=== PATIENT | female | born 1940 | race Caucasian/White ===

== ENCOUNTER 2021-12-12 09:45 | Inpatient (IN) | payer MEDICARE, OTHER, SELFPAY ==
[2021-12-12] VITALS (33 sets, daily range): BP systolic 129–160; BP diastolic 46–68; PULSE 58–78; RESP 11–21; TEMP 36.4–36.6; O2SAT 93–100; BMI 29.2
--- NOTE | ~2021-12-12 | US_ITS ---
US venous doppler LE RT DATE: 12/12/2021 11:36 INDICATION: Swelling of right lower sternum. Recent surgery. TECHNIQUE: Real-time and color flow imaging and Doppler analysis of the veins of the right lower extr emity COMPARISON: None FINDINGS: The greater saphenous vein is patent. There is spontaneous and phasic flow and normal augme ntation and color flow signal and normal compression of the deep veins of the right lower extremity. IMPRESSION: No evidence of deep venous thrombosis. Reviewed, dictated and finalized at [facility]. Reviewed, dictated and finalized at location [facility].
--- NOTE | ~2021-12-12 | CT_ITS ---
EXAMINATION: CTA chest PE protocol DATE: 12/12/2021 13:59 INDICATION: Syncope. Elevated d-dimer. TECHNIQUE: Computed tomography angiography (CTA) of the chest was performed with 100 mL Omnipaque-350 intravenous contrast timed to evaluate the pulmonary arteries. Coronal maximum intensity projection 3D-reconstructions were created by the technologist. Automated exposure control and iterative reconst ruction technique were employed. Exam dose: 431.16 mGy-cm total exam DLP. COMPARISON: 02/11/2022 AP and lateral chest FINDINGS: There is diagnostic contrast enhancement of the pulmonary arteries. Focal embolism is ident ified in the subsegmental right lower lobe pulmonary artery. Heart size is normal. No pericardial effusion. There is thoracic aortic and great vessel and coronary artery calcification. No thoracic aortic aneurysm or dissection is detected. No hilar or mediastinal mass lesion or lymphadenopathy. Minimal bilateral pleural effusions, minimal bilateral dependent lower lobe and dependent left upper lobe atelectasis is noted. Status post anterior cervical spine surgical fusion. IMPRESSION: Subsegmental right lower lobe pulmonary embolus Minimal bilateral pleural effusions and minimal bilateral lower lobe dependent atelectasis Reviewed, dictated and finalized at [facility]. Reviewed, dictated and finalized at location [facility].
--- NOTE | ~2021-12-12 | US_ITS ---
EXAMINATION: US carotid duplex BI DATE: 12/12/2021 14:15 INDICATION: Syncope. TECHNIQUE: Grayscale, color Doppler, and pulsed Doppler images of the cervical carotid arteries were obtained. The degree of vessel stenosis is placed in one of the following categories: normal, <50%, 5 0-69%, >=70% but less than near-occlusion, near-occlusion, or total occlusion. Note that percent sten osis relative to normal distal artery lumen diameter is indirectly measured from velocity measurement s as described by Dom, et al. Radiology 2003; 229:340-346. COMPARISON: None. FINDINGS: RIGHT: The right common carotid artery (CCA) peak systolic velocity (PSV) is 72 cm/s. The right internal car otid artery (ICA) PSV is 83 cm/s. The right ICA end-diastolic velocity (EDV) is 19 cm/s. The right IC A/CCA PSV ratio is 1.1. Grayscale and color Doppler images yield an estimate of <50% diameter reducti on from plaque in the ICA. There is antegrade flow in the right vertebral artery. LEFT: The left CCA PSV is 89 cm/s. The left ICA PSV is 268 cm/s. The left ICA EDV is 55 cm/s. The left ICA/ CCA PSV ratio is 3.0. Grayscale and color Doppler images yield an estimate of <50% diameter reduction from plaque in the ICA. There is antegrade flow in the left vertebral artery. IMPRESSION: 1. <50% stenosis in the right internal carotid artery. 2. <50% stenosis in the left internal carotid artery. Reviewed, dictated and finalized at location [facility].
--- NOTE | ~2021-12-12 | XR_ITS ---
XR chest 2V DATE: 12/12/2021 10:18 INDICATION: Syncope TECHNIQUE: AP and lateral views COMPARISON: None FINDINGS: Heart size is normal. Thoracic aortic and great vessel calcification. Prominent right cardiophrenic fat pad. No pulmonary infiltrate or consolidation is detected. No pulmonary vascular congestion. Minimal pleur al effusions are suggested. No pneumothorax. Status post anterior cervical spine surgical fusion. Diffuse osteopenia. IMPRESSION: Minimal pleural effusions are suggested No active cardiopulmonary disease Aortic and great vessel calcification Status post anterior cervical spine surgical fusion Osteopenia Reviewed, dictated and finalized at location [facility].
--- NOTE | 2021-12-12 09:53 | ECG_ITS ---
Measurements Intervals [place] Rate: 72 P: GA: 174 QRS: -39 QRSD: 86 T: 4 QT: 391 QTc: 428 Interpretive Statements SINUS RHYTHM BASELINE ARTIFACT LEFT AXIS DEVIATION ANTEROSEPTAL MYOCARDIAL INFARCTION , PROBABLY OLD ABNORMAL ECG NO PREVIOUS ECG AVAILABLE FOR COMPARISON Electronically Signed On 12-12-2021 11:56:28 CDT by Larry Schroeder M.D.
--- NOTE | 2021-12-12 10:23 | ED.SYNCOPE ---
HPI - Syncope General Chief Complaint: Syncope <Jazzmine Pollard PA-C - Last Filed: 12/12/21 14:57> Stated Complaint: ?unresponsive episode <AWILDA Tobin Last Filed: 12/12/21 14:57> Time Seen by Provider: 12/12/21 10:09 <Jazzmine Pollard PA-C - Last Filed: 12/12/21 14:57> Source: patient and EMS <AWILDA Tobin Last Filed: 12/12/21 14:57> Mode of arrival: EMS <AWILDA Tobin Last Filed: 12/12/21 14:57> Limitations: no limitations <Jazzmine Pollard PA-C - Last Filed: 12/12/21 14:57> History of Present Illness HPI narrative: This is an 80-year-old female that presents to the emergency department after syncopal episode today. Reports they were transferring her to the toilet. She started to feel lightheaded and then passed out. Reports the episode was witnessed. She did not fall or sustain any injuries. When she came back to she vomited. She is still feeling mildly lightheaded. Denies any other symptoms currently. Reports she recently had a syncopal episode and sustained a right hip fracture. Does report some edema of her right leg after surgery. She has been having an injection of a blood thinner daily since her surgery. Denies fever, chest pain, shortness of breath, palpitations, or focal numbness or weakness. <AWILDA Tobin Last Filed: 12/12/21 14:57> Related Data Allergies/Adverse Reactions: Allergies Allergy/AdvReac Type Severity Reaction Status Date / Time aspirin Allergy Unknown Verified 12/12/21 10:33 [email or web address] [From Velcade] Allergy Unknown Verified 12/12/21 10:33 lactose Allergy Unknown Verified 12/12/21 10:33 [id number] Reductase Allergy Unknown Verified 12/12/21 10:33 Inhibitor Sulfa (Sulfonamide Allergy Unknown Verified 12/12/21 10:33 Antibiotics) <AWILDA Tobin Last Filed: 12/12/21 14:57> Review of Systems Review of Systems: CONSTITUTIONAL: Denies fever EYES: Denies visual changes CARDIOVASCULAR: Denies chest pain, palpitations RESPIRATORY: Denies dyspnea. GASTROINTESTINAL: Reports vomiting NEUROLOGIC: Denies numbness, or weakness. <Jazzmine Pollard PA-C - Last Filed: 12/12/21 14:57> All systems reviewed & are unremarkable except as noted in HPI and below <Jazzmine Pollard PA-C - Last Filed: 12/12/21 14:57> PMFSH Past Medical History Medical History: Medical History (Updated 12/12/21 @ 14:39 by Jazzmine Pollard PA-C) History of amyloidosis History of hypertension History of hypothyroidism History of paroxysmal supraventricular tachycardia <Jazzmine Pollard PA-C - Last Filed: 12/12/21 14:57> Surgical History Surgical History: Surgical History (Updated 12/12/21 @ 10:26 by Jazzmine Pollard PA-C) History of hysterectomy <Jazzmine Pollard PA-C - Last Filed: 12/12/21 14:57> Social History Social History: Social History (Updated 12/12/21 @ 10:25 by Jazzmine Pollard PA-C) Smoking status: Never smoker Substance use: never <Jazzmine Pollard PA-C - Last Filed: 12/12/21 14:57> Exam Narrative: GENERAL: Well-appearing, well-nourished, and in no acute distress. HEAD: Normocephalic, atraumatic. EYES: PERRLA and EOMI. ENT: Nares clear, no rhinorrhea or epistaxis. Mucous membranes moist. Oropharynx without tonsillar hypertrophy exudate or other lesions. Bilateral TMs pearly scanlon non-bulging NECK: Supple. No adenopathy or masses. CHEST: Clear to auscultation. No respiratory distress. No wheezes rales or rhonchi HEART: Regular rate and rhythm. No murmur heard. Normal peripheral pulses. EXTREMITIES: Normal range of motion, except decreased active ROM in the right hip due to recent surgery. Non-pitting edema to the right leg. Incision of the right hip is clean, dry and intact. No erythema or warmth of the leg. SKIN: Warm, dry, no rash. NEURO: No focal deficits. Alert and oriented x3. Cranial nerves II through XII grossly intact PSYCH: Normal mood and affect <Zhen
[2021-12-12 10:31] LABS: Basophils Percent Auto 0.3 % (0.2-1.2); Eosinophils Absolute Auto 0.1 K/mm3 (0-0.3); Eosinophils Percent Auto 0.8 % (0-4.4); Hematocrit 35.1 % (37.0-47.0); Hemoglobin 11.3 g/dL (12.0-15.0); Immature Granulocyte Absolute 0.04 K/mm3 (0.00-0.031); Immature Granulocyte Percent A 0.4 % (0-0.5); Lymphocytes Absolute Auto 0.91 K/mm3 (0.9-3.2); Lymphocytes Percent Auto 9.9 % (18.3-44.2); Mean Corpuscular HGB Conc 32.2 g/dl (32-36); Mean Corpuscular Hemoglobin 31.3 pg (26-34); Mean Corpuscular Volume 97.2 fl (80-100); Mean Platelet Volume 10.1 fl (7.4-10.4); Monocytes Absolute Auto 0.5 K/mm3 (0.1-0.6); Monocytes Percent Auto 5.1 % (2.6-8.5); Neutrophils Absolute Auto 7.7 K/mm3 (1.3-6.7); Neutrophils Percent Auto 83.5 % (45.5-73.1); Platelet Count Result 315 k/mm3 (150-375); Red Blood Count 3.61 M/mm3 (4.2-5.4); Red Cell Distribution Width 16.5 % (11.5-14.5); White Blood Count 9.2 K/mm3 (4.5-10.0)
[2021-12-12 10:40] LABS: Alanine Aminotransferase 31 U/L (6-35); Albumin Level 3.6 g/dL (3.5-5.1); Alkaline Phosphatase 156 U/L (38-126); Anion Gap 3 mmol/L (8-16); Aspartate Amino Transferase 38 U/L (14-36); Blood Urea Nitrogen 12 mg/dL (7-17); Calcium 9.8 mg/dL (8.4-10.2); Carbon Dioxide 25 mmol/L (22-30); Chloride 107 mmol/L (98-107); Estimated Glomerular Filt Rate > 60; Glucose 161 mg/dL (65-110); Potassium 3.9 mmol/L (3.4-5.0); Sodium 135 mmol/L (137-145)
[2021-12-12 10:42] LABS: Partial Thromboplastin Time 30.7 SECONDS (22.3-36.8); Prothrombin Time 12.8 Seconds (11.1-14.7)
[2021-12-12 10:52] LABS: Troponin I < 0.012 ng/mL (0.000-0.034)
[2021-12-12 11:24] LABS: Add Urine Microscopic? YES; Appearance Urine Clear (Clear); Bilirubin Urine Negative (Negative); Blood Urine Trace-Intact (Negative); Color Urine Yellow (Yellow); Glucose Urine UA Negative (Negative); Ketones Urine Negative (Negative); Leukocyte Esterase Ur 2+ LEU/UL (Negative); Nitrate Urine Positive (Negative); Protein Urine 1+ mg/dL (Negative); Urobilinogen Urine 0.2 mg/dL (<2.0); pH Urine 7.5 (5.0-9.0)
[2021-12-12 11:30] LABS: Mucus Urine Rare /lpf; WBC Urine >75 /hpf
[2021-12-12] MEDS: SODIUM CHLORIDE 0.9% IV 500 ML 999 ML IV CONT (11:33)
[2021-12-12 12:26] LABS: Free T4 Free Thyroxine Reflex 1.37 ng/dL (0.78-2.19)
[2021-12-12 13:11] LABS: D Dimer 4.54 ug/mL (<0.48)
--- NOTE | 2021-12-12 13:16 | PM.IMHP ---
H&P: HPI History of Present Illness Date/Time: 12/12/21 13:16 Chief Complaint: Syncope Narrative: Patient is an 80-year-old female with past medical history of paroxysmal supraventricular tachycardia, hypothyroidism, hypertension and amyloidosis. She presented to [facility] due to syncopal episode after transferring from a toilet. Patient started to feel lightheaded and passed out. The episode was witnessed. No significant fall or injuries were sustained. When patient became alert again she had an episode of emesis and reported feeling mildly lightheaded. She denies any active symptoms in the emergency department. Patient recently had a syncopal episode and sustained a right hip fracture. At that time the patient did have surgical intervention performed to her right leg and continues to have some swelling. Patient also has been on injections of blood thinners daily since her surgery. She denies any recent fever, chest pain, shortness breast, palpitations or or focal weaknesses. While in the emergency department labs and imaging were obtained. Patient had WBC of 9.2, hemoglobin 11.3, hematocrit 35.1 and platelets 315, normal INR with a sodium 135 potassium 3.9, BUN 12, creatinine 0.6 with GFR greater than 60. Glucose elevated at 161 and an AST of 38, ALT 31 alkaline phosphatase 156. Troponin was negative. UA positive for nitrates, WBC and leukocyte esterase. Chest x-ray revealed anterior cervical spine surgical fusion, but no cardiac or pulmonary disease. Venous Doppler obtained which did not reveal a deep vein thrombosis. EKG revealed normal sinus rhythm no ST changes and normal QTC. Hospitalist team was consulted for admission due to the patient's syncopal episode in UTI. Patient was given ceftriaxone 1 g in the emergency department with 1 L fluid bolus. Patient will continue ceftriaxone on upon admission. With orthostatics Q shift and q.4 vital signs. PT and OT to evaluate and treat the patient. Review of Systems Review of Systems: All systems reviewed & are unremarkable except as noted in HPI and below PMFSH Past Medical History Medical History (Updated 12/12/21 @ 13:46 by Radha Cannon APRN) History of amyloidosis History of hypertension History of hypothyroidism History of paroxysmal supraventricular tachycardia Surgical History Surgical History (Updated 12/12/21 @ 10:26 by Jazzmine Pollard PA-C) History of hysterectomy Social History Social History (Updated 12/12/21 @ 10:25 by Jazzmine Pollard PA-C) Smoking status: Never smoker Substance use: never Meds Home Medications and Allergies Allergies Allergy/AdvReac Type Severity Reaction Status Date / Time aspirin Allergy Unknown Verified 12/12/21 10:33 bortezomib [From Velcade] Allergy Unknown Verified 12/12/21 10:33 lactose Allergy Unknown Verified 12/12/21 10:33 [id number]-[id number] Reductase Allergy Unknown Verified 12/12/21 10:33 Inhibitor Sulfa (Sulfonamide Allergy Unknown Verified 12/12/21 10:33 Antibiotics) Vital Signs Vital Signs - 24 hr 12/12/21 09:54 12/12/21 10:47 12/12/21 10:49 Temperature 97.7 F Pulse Rate 76 65 73 Respiratory Rate 21 H Blood Pressure 160/64 H 144/59 H 129/60 Pulse Oximetry 99 Oxygen Delivery Room Air 12/12/21 10:15 12/12/21 10:32 12/12/21 10:58 Temperature Pulse Rate 73 68 Respiratory Rate 13 Blood Pressure Pulse Oximetry 96 98 Oxygen Delivery 12/12/21 11:00 12/12/21 11:01 12/12/21 11:33 Temperature Pulse Rate Respiratory Rate Blood Pressure 143/66 H Pulse Oximetry 98 99 99 Oxygen Delivery 12/12/21 11:45 12/12/21 11:46 12/12/21 12:00 Temperature Pulse Rate Respiratory Rate Blood Pressure 140/58 L Pulse Oximetry 99 99 97 Oxygen Delivery 12/12/21 12:01 12/12/21 12:22 12/12/21 12:42 Temperature Pulse Rate 78 Respiratory Rate 16 Blood Pressure 136/46 L 135/52 L Pulse Oximetry 98 99 99
[2021-12-12 13:21] LABS: Total Triiodothyronine (T3) 0.84 NG/ML (0.97-1.69)
[2021-12-12] MEDS: ENOXAPARIN 80 MG/0.8 ML SYRINGE 75 MG SUB-Q (14:48)
--- NOTE | 2021-12-12 16:20 | ADMGEN ---
This patient, Natalia Jones, was admitted to [facility] Surg Room 323-01. Patient/family oriented to hospital policies and general routines including ID bracelet, bed and alarms, visiting hours, pain management, procedures, bathroom and other care routines, personal items, smoking policy, room service/diet, and visiting hours. Information on how to activate the Rapid Response Team has been discussed. Patient/Family are encouraged to report perceived risks to care and to ask questions if they do not understand what they are told or what they should do.
[2021-12-12 16:33] LABS: Basophils Percent Auto 0.5 % (0.2-1.2); Eosinophils Absolute Auto 0.1 K/mm3 (0-0.3); Eosinophils Percent Auto 0.9 % (0-4.4); Hematocrit 33.7 % (37.0-47.0); Hemoglobin 10.6 g/dL (12.0-15.0); Immature Granulocyte Absolute 0.03 K/mm3 (0.00-0.031); Immature Granulocyte Percent A 0.3 % (0-0.5); Lymphocytes Absolute Auto 1.68 K/mm3 (0.9-3.2); Lymphocytes Percent Auto 19.1 % (18.3-44.2); Mean Corpuscular HGB Conc 31.5 g/dl (32-36); Mean Corpuscular Hemoglobin 30.9 pg (26-34); Mean Corpuscular Volume 98.3 fl (80-100); Mean Platelet Volume 9.8 fl (7.4-10.4); Monocytes Absolute Auto 0.6 K/mm3 (0.1-0.6); Monocytes Percent Auto 7.3 % (2.6-8.5); Neutrophils Absolute Auto 6.3 K/mm3 (1.3-6.7); Neutrophils Percent Auto 71.9 % (45.5-73.1); Platelet Count Result 291 k/mm3 (150-375); Red Blood Count 3.43 M/mm3 (4.2-5.4); Red Cell Distribution Width 16.6 % (11.5-14.5); White Blood Count 8.8 K/mm3 (4.5-10.0)
[2021-12-12 16:45] LABS: INR 1.1; Partial Thromboplastin Time 39.8 SECONDS (22.3-36.8); Prothrombin Time 13.6 Seconds (11.1-14.7)
[2021-12-12] MEDS: SODIUM CHLORIDE 0.9% IV 1,000 ML 75 ML IV CONT (18:24)
[2021-12-12] MEDS: ACETAMINOPHEN 325 MG TABLET 650 MG PO (19:47)
[2021-12-12] MEDS: HEPARIN SOD/D5W 100 UNITS/ML 25,000 UNITS/250 ML BAG 11 UNITS IV CONT (21:07)
[2021-12-12] MEDS: MELATONIN 5 MG TABLET PO (21:16)
--- NOTE | 2021-12-12 21:19 | PC.NURSE ---
12/12/212039 pharmacy contacted per charge nurse lidia regarding heparin drip infusing with normal saline. brittani stated okay to run heparin drip with normal saline.
[2021-12-13] VITALS (11 sets, daily range): BP systolic 130–154; BP diastolic 41–55; PULSE 55–73; RESP 14–18; TEMP 36.4–37.3; O2SAT 97–99
--- NOTE | 2021-12-13 03:18 | PC.NURSE ---
12/13/21 0315 contacted lab spoke with saritha regarding lab draw.
[2021-12-13 03:37] LABS: Basophils Absolute Auto 0.1 K/mm3 (0.0-0.1); Basophils Percent Auto 0.7 % (0.2-1.2); Eosinophils Absolute Auto 0.1 K/mm3 (0-0.3); Eosinophils Percent Auto 1.7 % (0-4.4); Hematocrit 30.5 % (37.0-47.0); Hemoglobin 9.7 g/dL (12.0-15.0); Immature Granulocyte Absolute 0.03 K/mm3 (0.00-0.031); Immature Granulocyte Percent A 0.4 % (0-0.5); Lymphocytes Absolute Auto 1.72 K/mm3 (0.9-3.2); Lymphocytes Percent Auto 23.7 % (18.3-44.2); Mean Corpuscular HGB Conc 31.8 g/dl (32-36); Mean Corpuscular Hemoglobin 31.4 pg (26-34); Mean Corpuscular Volume 98.7 fl (80-100); Mean Platelet Volume 9.8 fl (7.4-10.4); Monocytes Absolute Auto 0.6 K/mm3 (0.1-0.6); Monocytes Percent Auto 8.7 % (2.6-8.5); Neutrophils Absolute Auto 4.7 K/mm3 (1.3-6.7); Neutrophils Percent Auto 64.8 % (45.5-73.1); Platelet Count Result 247 k/mm3 (150-375); Red Blood Count 3.09 M/mm3 (4.2-5.4); Red Cell Distribution Width 16.7 % (11.5-14.5); White Blood Count 7.3 K/mm3 (4.5-10.0)
[2021-12-13 03:48] LABS: Alanine Aminotransferase 24 U/L (6-35); Albumin Level 2.8 g/dL (3.5-5.1); Alkaline Phosphatase 122 U/L (38-126); Anion Gap 0 mmol/L (8-16); Aspartate Amino Transferase 28 U/L (14-36); Bilirubin,Total 0.5 mg/dL (0.2-1.3); Blood Urea Nitrogen 12 mg/dL (7-17); Calcium 9.1 mg/dL (8.4-10.2); Carbon Dioxide 26 mmol/L (22-30); Chloride 108 mmol/L (98-107); Estimated CRCL calculation 52 ml/min; Estimated Glomerular Filt Rate > 60; Glucose 121 mg/dL (65-110); Magnesium 1.9 mg/dL (1.6-2.3); Potassium 4.2 mmol/L (3.4-5.0); Sodium 134 mmol/L (137-145)
[2021-12-13 03:50] LABS: Partial Thromboplastin Time 112.4 SECONDS (22.3-36.8)
[2021-12-13] MEDS: LEVOTHYROXINE SODIUM 75 MCG TABLET PO (06:32)
--- NOTE | 2021-12-13 06:43 | PM.IMPN ---
Progress Note: A&P Assessment and Plan (1) Syncope: Qualifiers: Syncope type: unspecified Qualified Code(s): R55 - Syncope and collapse Code(s): R55 - Syncope and collapse Status: Acute Assessment and Plan: Monitor vital signs Q 4, I&Os, chest pain, shortness of breath and patient is a fall risk Monitor Serum electrolytes, and cbc Keep serum potassium >4 and keep magnesium >2 Consider Cardiology consult if the patient does not clinically improve Obtain orthostatics Q shift Monitor for bloody bowel movements,chest pain,SOB or dizziness/lightheadedness Pending an Echocardiogram Carotid Dopplers revealed less than 50% stenosis in the right and left internal carotid artery CT of the chest PE protocol revealed a pulmonary embolism. Patient has been anticoagulated with Lovenox on the outpatient basis after having surgical intervention to her hip. Due to the patient's failure of Lovenox therapy she was placed on heparin drip and will be bridged to Coumadin Administer 10 mg of Coumadin on 12/13/2021, check INR daily Neuro checks Q shift Consider adding atorvastatin 40 mg daily, aspirin 81 mg daily given the patient's age and stroke prophylaxis PT/OT eval and treat P.r.n. antiemetics (2) Hypertension: Code(s): I10 - Essential (primary) hypertension Status: Acute Assessment and Plan: Continue home medications (3) Urinary tract infection: Code(s): N39.0 - Urinary tract infection, site not specified Status: Acute Assessment and Plan: CBC, CMP, UA, reviewed Obtain urine culture if needed Follow temp curve, cultures, WBC, and VS Ceftriaxone 1g IV daily Continue gentle IV fluid resuscitation for hemodynamic stability, patient received 1 L of fluid bolus in the emergency department (4) Right hip pain: Code(s): M25.551 - Pain in right hip Status: Acute Assessment and Plan: Patient has right hip pain after surgical intervention performed. Patient continues receive Lovenox injections. May need to consult Orthopedic (5) Pulmonary embolism: Qualifiers: Pulmonary embolism type: single subsegmental (without acute cor pulmonale) Qualified Code(s): I26.93 - Single subsegmental pulmonary embolism without acute cor pulmonale Code(s): I26.99 - Other pulmonary embolism without acute cor pulmonale Status: Acute Assessment and Plan: Monitor vital signs, I&Os, neuro status, patient is a fall risk and patient is a bleeding risk Monitor PTT, Serum electrolytes, and cbc Keep serum potassium >4 and keep magnesium >2 Monitor anticoagulation therapy Heparin drip per protocol, bridging to Coumadin. Patient received 10 mg of Coumadin on 12/13/2021. Monitor INR daily Obtain echocardiogram Subjective Date/time seen: 12/13/21 06:43 Interval history: Patient is very pleasant 80-year-old female. She denies any acute shortness of breath, chest pain, nausea, vomiting upset stomach or diarrhea. She was informed about the pulmonary embolism and initiation of the heparin drip on 12/12/2021. Patient will be started on Coumadin on 12/13/2021. Patient had failed Lovenox therapy. She did have surgical intervention performed to her hips, P is suspected to be provoked. Venous Doppler of the bilateral lower extremities negative for DVT. Pending echocardiogram. Carotid Doppler revealed less than 50% stenosis on the right and left internal carotid arteries. Review of Systems Review of Systems: All systems reviewed & are unremarkable except as noted in HPI and below Exam Narrative: General: No acute distress. Mental Status: Awake, alert and oriented to person, place, and time with clear speech. Skin: Skin in warm, dry and intact without rashes or lesions. Head: Normocephalic and atraumatic. Eyes: Conjunctivae are clear without exudates or hemorrhage. Sclera is non-icteric. EOM are intact, PERRLA. Ears: The external ear and canal a
[2021-12-13] MEDS: SODIUM CHLORIDE 0.9% IV 1,000 ML 75 ML IV CONT ×2 (07:56→21:51)
[2021-12-13] MEDS: carvediloL 25 MG TABLET PO ×2 (09:03→21:52)
[2021-12-13] MEDS: CHOLECALCIFEROL 1,000 UNITS TABLET 1000 UNITS PO (09:03)
[2021-12-13] MEDS: ACETAMINOPHEN 500 MG TABLET 1000 MG PO ×2 (09:03→21:52)
[2021-12-13] MEDS: MULTIVITAMINS /C LUTEIN (CENTRUM SILVER) TABLET *BKC 1 TAB PO (09:03)
[2021-12-13 10:08] LABS: INR 1.1; Prothrombin Time 13.6 Seconds (11.1-14.7)
[2021-12-13 10:10] LABS: Partial Thromboplastin Time 89.1 SECONDS (22.3-36.8)
[2021-12-13 12:11] LABS: LDL Cholesterol Direct 87 mg/dL
[2021-12-13 12:14] LABS: Cholesterol 161 mg/dL (0-200); HDL Direct 46 mg/dL; Triglycerides 98 mg/dL (<150)
--- NOTE | 2021-12-13 13:24 | ECHO_ITS ---
Patient Info Name: Natalia Jones Age: 80 years : 1940 Gender: Female Ht: 63 in Wt: 164 lbs BSA: 1.84 m2 HR: 60 bpm BP: 154 / 55 mmHg Heart Rhythm: Sinus Rhythm Technical Quality: Good Exam Date: 12/13/2021 11:02 AM Exam Location: [facility] Pulmonary Exam Room: 323 Patient Status: Inpatient Admit Date: 12/13/2021 Staff Ordering Physician: Radha Cannon APRN Cake Batter Mixer: Natalia Last RDCS Attending Provider: Black Riley MD Referring Physician: Davis MONTALVO; Exam Type: CA echo doppler color flow Study Info Indications - sob Complete two-dimensional, color flow and Doppler transthoracic echocardiogram is performed. Summary 1. Complete two-dimensional, color flow and Doppler transthoracic echocardiogram is performed. 2. Left ventricular chamber dimension is normal. 3. Left ventricular systolic function is normal, estimated at 65-70%. 4. There is moderate concentric increased left ventricular wall thickness. 5. The left ventricular diastolic function is grade I diastolic dysfunction. 6. There is trace tricuspid valve regurgitation. Left Ventricle Left ventricular chamber dimension is normal. Left ventricular systolic function is normal, estimated at 65-70%. There is moderate concentric increased left ventricular wall thickness. The left ventricular diastolic function is grade I diastolic dysfunction. Right Ventricle Right ventricular chamber dimension is normal. Left Atria Left atrial chamber dimension is normal. Right Atria Right atrial chamber dimension is normal. Aortic Valve The aortic valve is normal. Pulmonic Valve The pulmonic valve is normal. Mitral Valve The mitral valve has normal leaflets. There is no mitral valve regurgitation. Tricuspid Valve The tricuspid valve leaflets are normal. There is trace tricuspid valve regurgitation. Pericardium/Pleural The pericardium appears normal. Aorta The aortic root size at the sinus of Valsalva is normal. Left Ventricular Outflow Tract Name Value Normal LVOT 2D LVOT Diameter 2.0 cm LVOT Doppler LVOT Peak Gradient 5 mmHg LVOT Mean Gradient 2 mmHg LVOT VTI 24 cm LVOT VTI/AV VTI Ratio 0.9 LVOT Stroke Volume 73 ml LVOT CO 13.0 l/min LVOT CI 7.0 l/min/m2 Pulmonic Valve Name Value Normal PV Doppler PV Peak Gradient 3 mmHg Mitral Valve Name Value Normal MV Doppler MV Dec
[2021-12-13 16:15] LABS: Partial Thromboplastin Time 100.5 SECONDS (22.3-36.8)
[2021-12-13] MEDS: WARFARIN (*PBKC) 10 MG TABLET PO (17:47)
[2021-12-13] MEDS: HEPARIN SOD/D5W 100 UNITS/ML 25,000 UNITS/250 ML BAG 10 UNITS IV CONT (19:24)
[2021-12-13] MEDS: MELATONIN 5 MG TABLET PO (21:52)
[2021-12-13 21:53] LABS: Partial Thromboplastin Time 102.6 SECONDS (22.3-36.8)
[2021-12-14] VITALS (12 sets, daily range): BP systolic 136–169; BP diastolic 52–62; PULSE 56–84; RESP 16–18; TEMP 36.2–37.1; O2SAT 96–100
[2021-12-14 05:44] LABS: Basophils Absolute Auto 0.1 K/mm3 (0.0-0.1); Basophils Percent Auto 0.8 % (0.2-1.2); Eosinophils Absolute Auto 0.1 K/mm3 (0-0.3); Eosinophils Percent Auto 1.9 % (0-4.4); Hematocrit 29.8 % (37.0-47.0); Hemoglobin 9.7 g/dL (12.0-15.0); Immature Granulocyte Absolute 0.02 K/mm3 (0.00-0.031); Immature Granulocyte Percent A 0.3 % (0-0.5); Lymphocytes Absolute Auto 1.51 K/mm3 (0.9-3.2); Lymphocytes Percent Auto 23.3 % (18.3-44.2); Mean Corpuscular HGB Conc 32.6 g/dl (32-36); Mean Corpuscular Hemoglobin 31.3 pg (26-34); Mean Corpuscular Volume 96.1 fl (80-100); Mean Platelet Volume 10.1 fl (7.4-10.4); Monocytes Absolute Auto 0.7 K/mm3 (0.1-0.6); Monocytes Percent Auto 10.5 % (2.6-8.5); Neutrophils Absolute Auto 4.1 K/mm3 (1.3-6.7); Neutrophils Percent Auto 63.2 % (45.5-73.1); Platelet Count Result 248 k/mm3 (150-375); Red Cell Distribution Width 16.8 % (11.5-14.5); White Blood Count 6.5 K/mm3 (4.5-10.0)
[2021-12-14 06:01] LABS: INR 1.2; Prothrombin Time 14.7 Seconds (11.1-14.7)
[2021-12-14 06:03] LABS: Partial Thromboplastin Time 140.5 SECONDS (22.3-36.8)
[2021-12-14] MEDS: LEVOTHYROXINE SODIUM 75 MCG TABLET PO (06:08)
[2021-12-14 06:10] LABS: Alanine Aminotransferase 22 U/L (6-35); Albumin Level 2.6 g/dL (3.5-5.1); Alkaline Phosphatase 119 U/L (38-126); Anion Gap 2 mmol/L (8-16); Aspartate Amino Transferase 22 U/L (14-36); Bilirubin,Total 0.5 mg/dL (0.2-1.3); Blood Urea Nitrogen 13 mg/dL (7-17); Calcium 8.5 mg/dL (8.4-10.2); Carbon Dioxide 22 mmol/L (22-30); Chloride 110 mmol/L (98-107); Estimated CRCL calculation 52 ml/min; Estimated Glomerular Filt Rate > 60; Glucose 124 mg/dL (65-110); Potassium 4.3 mmol/L (3.4-5.0); Sodium 134 mmol/L (137-145)
[2021-12-14 08:27] LABS: NT Pro B Type Natriuretic Pept 1090 pg/mL (5-100)
[2021-12-14] MEDS: CHOLECALCIFEROL 1,000 UNITS TABLET 1000 UNITS PO (09:08)
[2021-12-14] MEDS: MULTIVITAMINS /C LUTEIN (CENTRUM SILVER) TABLET *BKC 1 TAB PO (09:08)
[2021-12-14] MEDS: ACETAMINOPHEN 500 MG TABLET 1000 MG PO ×2 (09:08→21:01)
[2021-12-14] MEDS: carvediloL 25 MG TABLET PO ×2 (09:08→21:01)
[2021-12-14] MEDS: SODIUM CHLORIDE 0.9% IV 1,000 ML 75 ML IV CONT (13:46)
[2021-12-14 14:33] LABS: Partial Thromboplastin Time 86.2 SECONDS (22.3-36.8)
--- NOTE | 2021-12-14 15:22 | P.PNIM_ITS ---
Progress Note: A&P Assessment and Plan (1) Syncope: Qualifiers: Syncope type: unspecified Qualified Code(s): R55 - Syncope and collapse Code(s): R55 - Syncope and collapse Status: Acute Assessment and Plan: Patient presented following episode of syncope after transferring to the toilet * Evaluate orthostatics. Monitor each shift * She has been monitored on telemetry with no evidence of dysrhythmias * Echocardiogram reviewed which showed normal EF 65-70% with grade 1 diastolic dysfunction, no significant valvular disease * Carotid Doppler revealed <50% stenosis of bilateral internal carotid arteries * Appreciate PT/OT evaluation * Implement fall precautions (2) Pulmonary embolism: Qualifiers: Pulmonary embolism type: single subsegmental (without acute cor pulmonale) Qualified Code(s): I26.93 - Single subsegmental pulmonary embolism without acute cor pulmonale Code(s): I26.99 - Other pulmonary embolism without acute cor pulmonale Status: Acute Assessment and Plan: CTA of the chest showed subsegmental right lower lobe pulmonary embolus * No evidence of heart strain on echocardiogram * BNP is within normal limits for age * Troponin negative * She was started on heparin drip per protocol with plans to bridge to Coumadin. She received 1 dose. * Due to desire to avoid INR monitoring, will transition to Eliquis. Begin Eliquis this evening. Heparin drip to be discontinued at administration of 1st dose. * Discussed with care coordination, Eliquis will be covered at her nursing facility * PE provoked likely due to acute postoperative period. Patient had been on prophylactic Lovenox injections at nursing facility. * She denies personal or family history of clotting disorder (3) Hypertension: Code(s): I10 - Essential (primary) hypertension Status: Acute Assessment and Plan: Blood pressure reviewed and has been generally well controlled. Last BP 141/52. * Continue carvedilol (4) Urinary tract infection: Code(s): N39.0 - Urinary tract infection, site not specified Status: Acute Assessment and Plan: UA abnormal on presentation * Urine culture with growth of >100k of both Pseudomonas aeruginosa and Enterococcus * Transitioned to IV cefepime and vancomycin while awaiting susceptibility report * Monitor cultures and tailor antibiotics according (5) Right hip pain: Code(s): M25.551 - Pain in right hip Status: Acute Assessment and Plan: Secondary to recent right hip fracture with subsequent surgical repair on 11/22/2021 at [facility] * Continue PT/OT * Supportive care * Analgesics available as needed Subjective Date/time seen: 12/14/21 15:22 Interval history: Date of service: 12/14/2021 Natalia Jones is an 80-year-old female with a history of hypertension, hypothyroidism, paroxysmal supraventricular tachycardia, amyloidosis, and recent right hip fracture s/p surgical repair on 11/22/2021 who is seen in follow-up fo r episode of syncope and PE. She is feeling better today. She endorses right hip pain that she rates as 2 to 3/10. She is tolerating therapy well. She has been able to ambulate to the toilet and is doing well with this. She denies any urinary symptoms including dysuria or hematuria. Her last bowel movement was today. She denies blood in her stools. She denies shortness of breath. Denies chest pain. Pleuritic chest discomfort. Denies hemoptysis. No wheezing. Denies abdominal pain, nausea, vomiting, fever, or chill
--- NOTE | 2021-12-14 15:22 | PM.IMPN ---
Progress Note: A&P Assessment and Plan (1) Syncope: Qualifiers: Syncope type: unspecified Qualified Code(s): R55 - Syncope and collapse Code(s): R55 - Syncope and collapse Status: Acute Assessment and Plan: Patient presented following episode of syncope after transferring to the toilet Evaluate orthostatics. Monitor each shift She has been monitored on telemetry with no evidence of dysrhythmias Echocardiogram reviewed which showed normal EF 65-70% with grade 1 diastolic dysfunction, no significant valvular disease Carotid Doppler revealed <50% stenosis of bilateral internal carotid arteries Appreciate PT/OT evaluation Implement fall precautions (2) Pulmonary embolism: Qualifiers: Pulmonary embolism type: single subsegmental (without acute cor pulmonale) Qualified Code(s): I26.93 - Single subsegmental pulmonary embolism without acute cor pulmonale Code(s): I26.99 - Other pulmonary embolism without acute cor pulmonale Status: Acute Assessment and Plan: CTA of the chest showed subsegmental right lower lobe pulmonary embolus No evidence of heart strain on echocardiogram BNP is within normal limits for age Troponin negative She was started on heparin drip per protocol with plans to bridge to Coumadin. She received 1 dose. Due to desire to avoid INR monitoring, will transition to Eliquis. Begin Eliquis this evening. Heparin drip to be discontinued at administration of 1st dose. Discussed with care coordination, Eliquis will be covered at her nursing facility PE provoked likely due to acute postoperative period. Patient had been on prophylactic Lovenox injections at nursing facility. She denies personal or family history of clotting disorder (3) Hypertension: Code(s): I10 - Essential (primary) hypertension Status: Acute Assessment and Plan: Blood pressure reviewed and has been generally well controlled. Last BP 141/52. Continue carvedilol (4) Urinary tract infection: Code(s): N39.0 - Urinary tract infection, site not specified Status: Acute Assessment and Plan: UA abnormal on presentation Urine culture with growth of >100k of both Pseudomonas aeruginosa and Enterococcus Transitioned to IV cefepime and vancomycin while awaiting susceptibility report Monitor cultures and tailor antibiotics according (5) Right hip pain: Code(s): M25.551 - Pain in right hip Status: Acute Assessment and Plan: Secondary to recent right hip fracture with subsequent surgical repair on 11/22/2021 at [facility] Continue PT/OT Supportive care Analgesics available as needed Subjective Date/time seen: 12/14/21 15:22 Interval history: Date of service: 12/14/2021 Natalia Jones is an 80-year-old female with a history of hypertension, hypothyroidism, paroxysmal supraventricular tachycardia, amyloidosis, and recent right hip fracture s/p surgical repair on 11/22/2021 who is seen in follow-up for episode of syncope and PE. She is feeling better today. She endorses right hip pain that she rates as 2 to 3/10. She is tolerating therapy well. She has been able to ambulate to the toilet and is doing well with this. She denies any urinary symptoms including dysuria or hematuria. Her last bowel movement was today. She denies blood in her stools. She denies shortness of breath. Denies chest pain. Pleuritic chest discomfort. Denies hemoptysis. No wheezing. Denies abdominal pain, nausea, vomiting, fever, or chills. She has no additional concerns. Review of Systems Review of Systems: All systems reviewed & are unremarkable except as noted in HPI and below Exam Narrative: General: Thin, well-appearing 80-year-old female, sitting up in bed, comfortable, NARD Neuro: awake, alert and oriented x4, speech clear, no focal neuro deficits noted HEENMT: normocephalic, atraumatic, EOMI, sclerae an
[2021-12-14] MEDS: APIXABAN 5 MG TABLET 10 MG PO (21:02)
[2021-12-14] MEDS: MELATONIN 5 MG TABLET PO (21:08)
[2021-12-15] VITALS: BP 156/62; PULSE 61; PULSE 68; RESP 18; TEMP 36.2; O2SAT 98
[2021-12-15 04:00] VITALS: BP 141/55; PULSE 56; PULSE 62; RESP 18; TEMP 36.1; O2SAT 98
[2021-12-15] MEDS: LEVOTHYROXINE SODIUM 75 MCG TABLET PO (05:29)
[2021-12-15 05:58] LABS: Hematocrit 30.4 % (37.0-47.0); Hemoglobin 9.8 g/dL (12.0-15.0); Mean Corpuscular HGB Conc 32.2 g/dl (32-36); Mean Corpuscular Hemoglobin 31.3 pg (26-34); Mean Corpuscular Volume 97.1 fl (80-100); Mean Platelet Volume 10.7 fl (7.4-10.4); Platelet Count Result 243 k/mm3 (150-375); Red Blood Count 3.13 M/mm3 (4.2-5.4); Red Cell Distribution Width 17.1 % (11.5-14.5)
[2021-12-15 06:13] LABS: Anion Gap 3 mmol/L (8-16); Blood Urea Nitrogen 11 mg/dL (7-17); Calcium 8.2 mg/dL (8.4-10.2); Carbon Dioxide 20 mmol/L (22-30); Chloride 113 mmol/L (98-107); Estimated CRCL calculation 58 ml/min; Estimated Glomerular Filt Rate > 60; Glucose 121 mg/dL (65-110); Potassium 3.7 mmol/L (3.4-5.0); Sodium 136 mmol/L (137-145)
[2021-12-15 08:00] VITALS: BP 152/54; BP 156/72; PULSE 93; RESP 20; TEMP 36.9; O2SAT 100
[2021-12-15 09:44] VITALS: BP 156/72
[2021-12-15] MEDS: MULTIVITAMINS /C LUTEIN (CENTRUM SILVER) TABLET *BKC 1 TAB PO (10:03)
[2021-12-15] MEDS: carvediloL 25 MG TABLET PO (10:03)
[2021-12-15] MEDS: ACETAMINOPHEN 500 MG TABLET 1000 MG PO (10:03)
[2021-12-15] MEDS: APIXABAN 5 MG TABLET 10 MG PO (10:03)
[2021-12-15] MEDS: CHOLECALCIFEROL 1,000 UNITS TABLET 1000 UNITS PO (10:03)
[2021-12-15 12:00] VITALS: BP 130/49; PULSE 65; RESP 18; TEMP 36.2; O2SAT 98
[2021-12-15 12:41] LABS: EDCOVIDSCREEN Negative (Negative)
--- NOTE | 2021-12-15 13:10 | P.DS_ITS ---
DS: Admitting Diagnosis Discharge Date 12/15/2021 Admitting Diagnosis Syncope DS: Discharge Diagnosis Discharge Diagnosis (1) Syncope: Qualifiers: Syncope type: unspecified Qualified Code(s): R55 - Syncope and collapse Code(s): R55 - Syncope and collapse Status: Acute Assessment and Plan: Patient presented following episode of syncope after transferring to the toilet * Monitored on telemetry with no evidence of dysrhythmias * Echocardiogram reviewed which showed normal EF 65-70% with grade 1 diastolic dysfunction, no significant valvular disease * Carotid Doppler revealed <50% stenosis of bilateral internal carotid arteries * Fall precautions implemented * Most likely vasovagal (2) Pulmonary embolism: Qualifiers: Pulmonary embolism type: single subsegmental (without acute cor pulmonale) Qualified Code(s): I26.93 - Single subsegmental pulmonary embolism without acute cor pulmonale Code(s): I26.99 - Other pulmonary embolism without acute cor pulmonale Status: Acute Assessment and Plan: CTA of the chest showed subsegmental right lower lobe pulmonary embolus * No evidence of heart strain on echocardiogram * BNP within normal limits for age * Troponin negative * Right venous Doppler negative for DVT * She was started on heparin drip per protocol with plans to bridge to Coumadin. She received 1 dose of Coumadin. * Due to desire to avoid INR monitoring, transitioned to Eliquis. * Continue Eliquis 10 mg BID x7 days, then 5 mg BID * Discussed with care coordination, Eliquis will be covered at her nursing facility * PE provoked likely due to acute postoperative period. Patient had been on prophylactic injections at nursing facility (assume Lovenox but cannot confirm). * She denied personal or family history of clotting disorder (3) Hypertension: Code(s): I10 - Essential (primary) hypertension Status: Acute Assessment and Plan: Blood pressure reviewed and was generally well controlled. * Continue carvedilol (4) Urinary tract infection: Code(s): N39.0 - Urinary tract infection, site not specified Status: Acute Assessment and Plan: UA abnormal on presentation * She was started on IV Ceftriaxone * Urine culture with growth of >100k of both Pseudomonas aeruginosa and Enterococcus * Transitioned to IV cefepime and vancomycin while awaiting susceptibilities * Following susceptibilities, she was switched to Amoxicillin for Enterococcus and Levaquin for Pseudomonas coverage. She will complete a total of 7 days of antibiotic therapy. Discussed with ID PharmD. (5) Right hip pain: Code(s): M25.551 - Pain in right hip Status: Acute Assessment and Plan: Secondary to recent right hip fracture with subsequent surgical repair on 11/22/2021 at [facility] * Participated in PT/OT during admission and will continue therapy at SNF following discharge * Supportive care provided * Analgesics available as needed * She has follow up scheduled with her surgeon (6) Hypothyroidism: Code(s): E03.9 - Hypothyroidism, unspecified Status: Acute Assessment and Plan: TSH elevated 11.3 with normal T4 and slightly decreased T3. * Pt on levothyroxine 75 mcg daily * Will increase to 100 mcg daily. Prescription called in to [facility] on 12/17 to CHLOE López. * She will need repeat reflex TSH in 4-6 weeks DS: Summary Hospital Course Hospital Course: Date of admission: 12/12
--- NOTE | 2021-12-15 13:10 | PM.DS ---
DS: Admitting Diagnosis Discharge Date 12/15/2021 Admitting Diagnosis Syncope DS: Discharge Diagnosis Discharge Diagnosis (1) Syncope: Qualifiers: Syncope type: unspecified Qualified Code(s): R55 - Syncope and collapse Code(s): R55 - Syncope and collapse Status: Acute Assessment and Plan: Patient presented following episode of syncope after transferring to the toilet Monitored on telemetry with no evidence of dysrhythmias Echocardiogram reviewed which showed normal EF 65-70% with grade 1 diastolic dysfunction, no significant valvular disease Carotid Doppler revealed <50% stenosis of bilateral internal carotid arteries Fall precautions implemented Most likely vasovagal (2) Pulmonary embolism: Qualifiers: Pulmonary embolism type: single subsegmental (without acute cor pulmonale) Qualified Code(s): I26.93 - Single subsegmental pulmonary embolism without acute cor pulmonale Code(s): I26.99 - Other pulmonary embolism without acute cor pulmonale Status: Acute Assessment and Plan: CTA of the chest showed subsegmental right lower lobe pulmonary embolus No evidence of heart strain on echocardiogram BNP within normal limits for age Troponin negative Right venous Doppler negative for DVT She was started on heparin drip per protocol with plans to bridge to Coumadin. She received 1 dose of Coumadin. Due to desire to avoid INR monitoring, transitioned to Eliquis. Continue Eliquis 10 mg BID x7 days, then 5 mg BID Discussed with care coordination, Eliquis will be covered at her nursing facility PE provoked likely due to acute postoperative period. Patient had been on prophylactic injections at nursing facility (assume Lovenox but cannot confirm). She denied personal or family history of clotting disorder (3) Hypertension: Code(s): I10 - Essential (primary) hypertension Status: Acute Assessment and Plan: Blood pressure reviewed and was generally well controlled. Continue carvedilol (4) Urinary tract infection: Code(s): N39.0 - Urinary tract infection, site not specified Status: Acute Assessment and Plan: UA abnormal on presentation She was started on IV Ceftriaxone Urine culture with growth of >100k of both Pseudomonas aeruginosa and Enterococcus Transitioned to IV cefepime and vancomycin while awaiting susceptibilities Following susceptibilities, she was switched to Amoxicillin for Enterococcus and Levaquin for Pseudomonas coverage. She will complete a total of 7 days of antibiotic therapy. Discussed with ID PharmD. (5) Right hip pain: Code(s): M25.551 - Pain in right hip Status: Acute Assessment and Plan: Secondary to recent right hip fracture with subsequent surgical repair on 11/22/2021 at [facility] Participated in PT/OT during admission and will continue therapy at SNF following discharge Supportive care provided Analgesics available as needed She has follow up scheduled with her surgeon (6) Hypothyroidism: Code(s): E03.9 - Hypothyroidism, unspecified Status: Acute Assessment and Plan: TSH elevated 11.3 with normal T4 and slightly decreased T3. Pt on levothyroxine 75 mcg daily Will increase to 100 mcg daily. Prescription called in to [facility] on 12/17 to CHLOE López. She will need repeat reflex TSH in 4-6 weeks DS: Summary Hospital Course Hospital Course: Date of admission: 12/12/2021 Date of discharge: 12/15/2021 Natalia Jones is an 80-year-old female with a history of hypertension, hypothyroidism, paroxysmal supraventricular tachycardia, amyloidosis, and recent right hip fracture s/p surgical repair on 11/22/2021?who presented to the emergency department on 12/12/2021 after she was transferring to the toilet and had a syncopal episode. On presentation to the ED, she was mildly anemic, additional CBC and BMP unremarkable,
== END 2021-12-15 15:20 | DRG 176 ==
LOC: ANHED 14:39 → ANH3MEDSUR 15:19
PROVIDERS: Internal Medicine; Nurse Practitioner Family; Physician Assistant; Admitting Provider Chiropractor; Emergency Provider Emergency Medicine; PCP Family Medicine; Visit Provider Family Medicine
DX: I26.93 Single subsegmental thrombotic pulmonary embolism without acute cor pulmonale (principal); N39.0 Urinary tract infection, site not specified; I47.1 Supraventricular tachycardia; E85.9 Amyloidosis, unspecified; R55 Syncope and collapse; B96.5 Pseudomonas (aeruginosa) (mallei) (pseudomallei) as the cause of diseases classified elsewhere; B95.2 Enterococcus as the cause of diseases classified elsewhere; D64.9 Anemia, unspecified; E03.9 Hypothyroidism, unspecified; I65.23 Occlusion and stenosis of bilateral carotid arteries; I10 Essential (primary) hypertension; M25.551 Pain in right hip; Z20.822 Contact with and (suspected) exposure to COVID-19; Z98.1 Arthrodesis status; Z90.710 Acquired absence of both cervix and uterus; Z91.81 History of falling; Z79.01 Long term (current) use of anticoagulants
CPT/HCPCS: 36415; 51701; 71046; 71275; 80048; 80053; 80061; 81001; 83735; 83880; 84439; 84443; 84480; 84484; 85025; 85027; 85380; 85610; 85730; 87077; 87086; 87147; 87181; 87186; 87426; 93005; 93306; 93880; 93971; 96361; 96365; 96366; 96367; 96372; 97161; 97165; 97530; 97535; 99285; A9270; C9803; G0378; J0692; J0696; J1644; J1650; J3370; J7030; J7040; Q9967